=== PATIENT | female | born 1965 | race Asian ===

== ENCOUNTER 2018-12-28 10:50 | Emergency (ER) | payer MEDICAID, OTHER ==
[~2018-12-28] VITALS: Ht 157.5 cm; Wt 74.1 kg
[2018-12-28] MEDS ORDERED: METF-960 PO ×2 (11:10→11:41)
[2018-12-28] MEDS ORDERED: HUM10VIA SQ ×2 (11:10→11:41)
[2018-12-28] MEDS ORDERED: LOSA25TA41 PO (11:10)
[2018-12-28] MEDS ORDERED: HYDROCODONE/ACETAMINOPHEN 5-325 MG TABLET PO ONE (11:45)
[2018-12-28 13:22] VITALS: BP 127/70
== END 2018-12-28 13:49 | disposition home or self-care (01) ==
LOC: EMS 10:52
DX: S90.32XA Contusion of left foot, initial encounter (principal); S70.11XA Contusion of right thigh, initial encounter; I10 Essential (primary) hypertension; V03.99XA Pedestrian with other conveyance injured in collision with car, pick-up truck or van, unspecified whether traffic or nontraffic accident, initial encounter; Y93.01 Activity, walking, marching and hiking; Y92.481 Parking lot as the place of occurrence of the external cause; Y99.8 Other external cause status
CPT/HCPCS: 73502

== ENCOUNTER 2022-09-27 12:14 | Emergency (ER) | payer OTHER ==
[~2022-09-27] VITALS: Ht 157.5 cm; Wt 62.7 kg
[~2022-09-27 12:14] MED LIST: HUM10VIA SQ; LOSA-381 PO; METF-1211 PO
[2022-09-27 12:17] VITALS: TEMP 98.4
[2022-09-27] MEDS ORDERED: METF-81 PO (12:21)
[2022-09-27] MEDS ORDERED: ERTU15TA PO (12:21)
[2022-09-27] MEDS ORDERED: SEMA2PEN SQ (12:21)
[2022-09-27] MEDS ORDERED: LOSA-381 PO (12:21)
[2022-09-27] MEDS ORDERED: HYDROCODONE/ACETAMINOPHEN 5-325 MG TABLET PO ONE (13:30)
[2022-09-27] MEDS ORDERED: IBUPROFEN 600 MG TABLET PO ONE (13:30)
[2022-09-27 13:36] LABS: BASOPHILS % (AUTO) 0.4 % (0.0-2.0); HEMATOCRIT 41.9 % (36-46); HEMOGLOBIN 13.9 g/dL (12.0-16.0); LYMPHOCYTES # (AUTO) 1.8 K/uL (1.0-4.8); LYMPHOCYTES % (AUTO) 20.1 % (22.0-44.0); MEAN CORPUSCULAR HEMOGLOBIN 28.7 pg (26.0-34.0); MEAN CORPUSCULAR HGB CONC 33.2 G/dL (31.0-37.0); MEAN CORPUSCULAR VOLUME 87 fL (80-100); MONOCYTES # (AUTO) 0.8 K/uL (0.1-1.0); MONOCYTES % (AUTO) 8.9 % (2.0-9.0); NEUTROPHILS # (AUTO) 6.4 K/uL (1.8-7.7); NEUTROPHILS % (AUTO) 69.6 % (40.0-70.0); PLATELET COUNT (AUTO) 261 K/uL (150-450); RED BLOOD CELL COUNT(AUTO) 4.84 MIL/uL (4.00-5.20)
[2022-09-27 13:46] LABS: ANION GAP 11 mmol/L (8-16); CALCIUM, TOTAL 8.9 mg/dL (8.8-10.5); CARBON DIOXIDE 29 mmol/L (22-29); CHLORIDE 103 mmol/L (98-107); CREATININE 0.45 mg/dL (0.60-1.30); GLOMERULAR FILTR. RATE CALC > 60 mL/min (>60); GLUCOSE,RANDOM 113 mg/dL (70-110); POTASSIUM 4.1 mmol/L (3.5-5.1); SODIUM SERUM 143 mmol/L (136-145)
[2022-09-27 13:49] LABS: URIC ACID 3.5 mg/dL (2.6-7.2)
[2022-09-27] MEDS ORDERED: IBUP-1554 PO (14:28)
[2022-09-27] MEDS ORDERED: HYDR-4072 PO (14:28)
[2022-09-27] MEDS ORDERED: CEPH-558 PO (14:29)
[2022-09-27 15:00] VITALS: BP 138/77; PULSE 78; RESP 16
== END 2022-09-27 15:01 | disposition home or self-care (01) ==
LOC: EMS 12:15
DX: S63.696A Other sprain of right little finger, initial encounter (principal); L03.011 Cellulitis of right finger; M19.041 Primary osteoarthritis, right hand; E11.9 Type 2 diabetes mellitus without complications; I10 Essential (primary) hypertension; Z88.0 Allergy status to penicillin; X58.XXXA Exposure to other specified factors, initial encounter; Y93.89 Activity, other specified; Y92.89 Other specified places as the place of occurrence of the external cause; Y99.8 Other external cause status
CPT/HCPCS: 80048; 82962; 84550; 85025; 99284